=== PATIENT | female | born 1955 | race Caucasian/White ===

== ENCOUNTER 2018-01-10 16:55 | Observation (INO) ==
[2018-01-10] MEDS ORDERED: Ketorolac Inj 30 MG/ML (IVP) Vial IV.PUSH STA (17:45)
[2018-01-10] MEDS ORDERED: Sod Chloride 0.9% Inj 1,000 ML IV.SIG ONE (17:45)
[2018-01-10 18:22] LABS: Bilirubin,Urine Negative (Negative); Clarity,Urine Clear (Clear); Color,Urine Yellow (Yellw/Straw); Glucose,Urine (UA) Negative (Negative); Leukocyte Esterase,Urine Moderate (Negative); Nitrite,Urine Negative (Negative)
[2018-01-10 18:24] LABS: Baso # (Auto) 0.1 th/mm3 (0.0-0.2); Baso % (Auto) 0.7 % (0.0-2.0); Eos # (Auto) 0.4 th/mm3 (0.0-0.4); Eos % (Auto) 4.5 % (0.0-4.0); Hematocrit 48.1 % (35.0-46.0); Hemoglobin 16.4 gm/dL (11.6-15.3); Lymph # (Auto) 1.5 th/mm3 (1.0-4.8); Lymph % (Auto) 17.8 % (9.0-44.0); Mean Corpuscular HGB Conc 34.2 % (32.0-36.0); Mean Corpuscular Hemoglobin 30.9 pg (27.0-34.0); Mean Corpuscular Volume 90.5 fL (80.0-100.0); Mean Platelet Volume 10.9 fL (7.0-11.0); Mono # (Auto) 0.5 th/mm3 (0.0-0.9); Neut # (Auto) 5.9 th/mm3 (1.8-7.7); Platelet Count 184 th/mm3 (150-450); Red Blood Count 5.31 mil/mm3 (4.00-5.30); Red Cell Distribution Width 14.7 % (11.6-17.2); White Blood Count 8.4 th/mm3 (4.0-11.0)
[2018-01-10 18:34] LABS: Chloride 102 meq/L (98-107); Potassium 4.1 meq/L (3.5-5.1); Sodium 137 meq/L (136-145)
[2018-01-10 18:37] LABS: Albumin 3.9 g/dL (3.4-5.0); Anion Gap 6 meq/L (5-15); Calcium 8.8 mg/dL (8.5-10.1); Carbon Dioxide 29.5 meq/L (21.0-32.0); Glucose,Random 86 mg/dL (74-106)
[2018-01-10 18:38] LABS: Blood Urea Nitrogen 8 mg/dL (7-18)
[2018-01-10 18:40] LABS: Alanine Aminotransferase 16 U/L (10-53)
[2018-01-10 18:41] LABS: Aspartate Aminotransferase 16 U/L (15-37); Glomerular Filtration Rate 50 mL/min (>89)
[2018-01-10 18:43] LABS: Alkaline Phosphatase 100 U/L (45-117)
[2018-01-10 18:46] LABS: Bacteria,Urine Few /hpf; RBC,Urine 0-3 /hpf (0-3); WBC,Urine 21-50 /hpf (0-5)
[2018-01-10 18:47] LABS: Activated Partial Thrombo Time 28.9 sec (24.3-30.1); Prothrombin Time 10.5 sec (9.8-11.6)
[2018-01-10 18:51] LABS: Thyroid Stimulating Hormone 0.256 uIU/mL (0.358-3.740)
--- NOTE | 2018-01-10 18:59 | CT ---
EXAM DATE: 01/10/2018 6:53 PM EDT AGE/SEX: 62 years / Female INDICATIONS: Dizziness. CLINICAL DATA: This is the patient's initial encounter. Patient reports that signs and symptoms have been present for 2 days and indicates a pain score of 4/10. MEDICAL/SURGICAL HISTORY: Hypertension. Hypothyroidism. Subdural hematoma. Cholecystectomy. Tons illectomy. RADIATION DOSE: 55.37 CTDI (mGy) COMPARISON: No prior exams available for comparison. TECHNIQUE: CT of the head without contrast. Using automated exposure control and adjustment of the mA and/or kV according to patient size, radiation dose was kept as low as reasonably achievable to ob tain optimal diagnostic quality images. DICOM format image data is available electronically for revi ew and comparison. FINDINGS: Cerebrum: The ventricles are normal for age. No evidence of midline shift, mass lesion, hemorrhage or acute infarction. No extraaxial fluid collections are seen. Posterior Fossa: The cerebellum and brainstem are intact. The 4th ventricle is midline. The cerebe llopontine angle is unremarkable. Extracranial: The visualized portion of the orbits is intact. Skull: The calvaria is intact. No evidence of skull fracture. CONCLUSION: Negative noncontrast head CT. . Electronically signed by: Bhanu Altamirano MD 01/10/2018 6:57 PM EDT
--- NOTE | 2018-01-10 19:21 | ED ---
HPI General Chief complaint: Weakness Stated complaint: Dizziness/Fall xYest Time Seen by Provider: 01/10/18 17:39 History of Present Illness HPI narrative: 62-year-old female here for evaluation of spinning sensation. Patient states that symptoms started yesterday, sudden onset, no weakness in arms or legs, no sensory loss. She states that she feels as if the room is spinning around her every time she moves her head up. She has no fever or chills, no night sweats. She has history of migraine headaches in the past, she states Toradol and Phenergan usually helps her headaches, she currently has no headache or any neurological symptoms except for the spinning sensation. Related Data Home Medications Medication Instructions Recorded Confirmed memantine [Namenda] 10 mg PO BID 01/10/18 01/10/18 metoprolol succinate [Toprol XL] 50 mg PO DAILY 01/10/18 01/10/18 paroxetine HCl [Paxil] 50 mg PO DAILY 01/10/18 01/10/18 trazodone 100 mg PO HS 01/10/18 01/10/18 Previous Rx's Medication Instructions Recorded levothyroxine 50 mcg PO DAILY #30 tab 01/11/18 Allergies Allergy/AdvReac Type Severity Reaction Status Date / Time Penicillins Allergy unknown Verified 01/10/18 17:13 tetracycline Allergy unknown Verified 01/10/18 17:13 acetaminophen [From Percocet] AdvReac Irritabilit Verified 01/10/18 17:13 y/Anxiety hydromorphone [From Dilaudid] AdvReac Irritabilit Verified 01/10/18 17:13 y/Anxiety oxycodone [From Percocet] AdvReac Irritabilit Verified 01/10/18 17:13 y/Anxiety Review of Systems ROS: all other systems reviewed are negative [facility] Medical History Medical History Anxiety (Acute) History of subdural hematoma (Acute) Hypertension (Acute) Hypothyroidism (Acute) PTSD (post-traumatic stress disorder) (Acute) Tobacco abuse (Acute) Surgical History Surgical History History of cholecystectomy (Acute) History of tonsillectomy (Acute) Social History Social History Substance History: Past History Second Hand Smoke Exposure: No Smoking Status: Current every day smoker Tobacco Type: Cigarettes How Often Do You Have a Drink Containing Alcohol: Never Recent Travel in [facility] within the Last 8 Weeks: No Recent Out of Country Travel within the Last 8 Weeks: No Immunization History Tetanus Immunization: Unsure Hx Influenza Vaccine This Season: No Exam Narrative Exam Narrative: GENERAL: Alert oriented 3 no acute distress. SKIN: Focused skin assessment warm/dry. HEAD: Atraumatic. Normocephalic. EYES: Pupils equal and round. No scleral icterus. No injection or drainage. ENT: No nasal bleeding or discharge. Mucous membranes pink and moist. NECK: Trachea midline. No JVD. CARDIOVASCULAR: Regular rate and rhythm. No murmur appreciated. RESPIRATORY: No accessory muscle use. Clear to auscultation. Breath sounds equal bilaterally. GASTROINTESTINAL: Abdomen soft, non-tender, nondistended. Hepatic and splenic margins not palpable. MUSCULOSKELETAL: No obvious deformities. No clubbing. No cyanosis. No edema. NEUROLOGICAL: Horizontal nystagmus, Awake and alert. No obvious cranial nerve deficits. Motor grossly within normal limits. Normal speech. PSYCHIATRIC: Appropriate mood and affect; insight and judgment normal. Course Initial Documented Vital Signs Temperature 98.1 F 01/10/18 17:06 Pulse Rate 60 01/10/18 17:06 Respiratory Rate 18 01/10/18 17:06 Blood Pressure 200/98 H 01/10/18 17:06 Pulse Oximetry 93 L 01/10/18 17:06 Last Documented Vital Signs Temperature 99.0 F 01/11/18 12:00 Pulse Rate 79 01/11/18 12:00 Respiratory Rate 18 01/11/18 12:00 Blood Pressure 145/82 H 01/11/18 12:00 Pulse Oximetry 95 01/11/18 12:[address] [facility] Narrative Medical decision making narrative: 62-year-old female here for evaluation of dizziness and spinning sensation. Physical exam is remarkable for nystagmus, uncontrolled hypertension, intractable vertigo that is not responding to treatment, no focal deficits. Head CT is negative, I believe the patient would benefit from 23 hour observation for further evaluation. Lab Data Result diagrams: 01/11/18 05:15 01/11/18 05:15 Lab Results 01/10/18 01/10/18 01/10/18 Range/Units 18:10 18:15 18:15 CBC w Diff Auto diff final WBC 8.4 (4.0-11.0) th/mm3 RBC 5.31 H (4.00-5.30) mil/mm3 Hgb 16.4 H (11.6-15.3) gm/dL Hct 48.1 H (35.0-46.0) % MCV 90.5 (80.0-100.0) fL MCH 30.9 (27.0-34.0) pg MCHC 34.2 (32.0-36.0) % RDW 14.7 (11.6-17.2) % Plt Count 184 (150-450) th/mm3 MPV 10.9 (7.0-11.0) fL Neut % (Auto) 71.0 H (16.0-70.0) % Lymph % (Auto) 17.8 (9.0-44.0) % [place] % (Auto) 6.0 (0.0-8.0) % Eos % (Auto) 4.5 H (0.0-4.0) % Baso % (Auto) 0.7 (0.0-2.0) % Neut # (Auto) 5.9 (1.8-7.7) th/mm3 Lymph # (Auto) 1.5 (1.0-4.8) th/mm3 [place] # (Auto) 0.5 (0.0-0.9) th/mm3 Eos # (Auto) 0.4 (0.0-0.4) th/mm3 Baso # (Auto) 0.1 (0.0-0.2) th/mm3 WBC Differential . Differential Comment . PT 10.5 (9.8-11.6) sec INR 1.0 Ratio APTT 28.9 (24.3-30.1) sec Sodium (136-145) meq/L Potassium (3.5-5.1) meq/L Chloride (98-107) meq/L Carbon Dioxide (21.0-32.0) meq/L Anion Gap (5-15) meq/L BUN (7-18) mg/dL Creatinine (0.50-1.00) mg/dL Estimated GFR (>89) mL/min Random Glucose (74-106) mg/dL Calcium (8.5-10.1) mg/dL Total Bilirubin (0.2-1.0) mg/dL AST (15-37) U/L ALT (10-53) U/L Alkaline Phosphatase (45-117) U/L Troponin I (0.02-0.05) ng/mL Total Protein (6.4-8.2) g/dL Albumin (3.4-5.0) g/dL TSH (0.358-3.740) uIU/mL Free T4 (0.76-1.46) ng/dL Urine Color Yellow (Yellw/Straw) Urine Clarity Clear (Clear) Urine pH 6.0 (5.0-8.5) Ur Specific [place] 1.020 (1.002-1.035) Urine Protein Negative (Neg-Trace) mg/dL Urine Glucose (UA) Negative (Negative) mg/dL Urine Ketones Negative (Negative) mg/dL Urine Occult Blood Negative (Negative) Urine Nitrate Negative (Negative) Urine Bilirubin Negative (Negative) Urine Urobilinogen 1.0 (Less than 2) mg/dL Ur Leukocyte Esterase Moderate H (Negative) Urine RBC 0-3 (0-3) /hpf Urine WBC 21-50 H (0-5) /hpf Ur Squamous Epith Cells 6-10 H (0-5) /hpf Urine Bacteria Few H (None) /hpf Micro UA Comment Culture indicated Urine Culture Comments Culture indicated 01/10/18 01/10/18 01/11/18 Range/Units 18:15 18:15 05:15 CBC w Diff Auto diff final WBC 7.4 (4.0-11.0) th/mm3 RBC 4.82 (4.00-5.30) mil/mm3 Hgb 14.9 (11.6-15.3) gm/dL Hct 44.1 (35.0-46.0) % MCV 91.6 (80.0-100.0) fL MCH 30.8 (27.0-34.0) pg MCHC 33.6 (32.0-36.0) % RDW 14.7 (11.6-17.2) % Plt Count 160 (150-450) th/mm3 MPV 10.8 (7.0-11.0) fL Neut % (Auto) 62.8 (16.0-70.0) % Lymph % (Auto) 21.7 (9.0-44.0) % [place] % (Auto) 9.0 H (0.0-8.0) % Eos % (Auto) 5.9 H (0.0-4.0) % Baso % (Auto) 0.6 (0.0-2.0) % Neut # (Auto) 4.7 (1.8-7.7) th/mm3 Lymph # (Auto) 1.6 (1.0-4.8) th/mm3 [place] # (Auto) 0.7 (0.0-0.9) th/mm3 Eos # (Auto) 0.4 (0.0-0.4) th/mm3 Baso # (Auto) 0.0 (0.0-0.2) th/mm3 WBC Differential . Differential Comment . PT (9.8-11.6) sec INR Ratio APTT (24.3-30.1) sec Sodium 137 (136-145) meq/L Potassium 4.1 (3.5-5.1) meq/L Chloride 102 (98-107) meq/L Carbon Dioxide 29.5 (21.0-32.0) meq/L Anion Gap 6 (5-15) meq/L BUN 8 (7-18) mg/dL Creatinine 1.10 H (0.50-1.00) mg/dL Estimated GFR 50 L (>89) mL/min Random Glucose 86 (74-106) mg/dL Calcium 8.8 (8.5-10.1) mg/dL Total Bilirubin 0.8 (0.2-1.0) mg/dL AST 16 (15-37) U/L ALT 16 (10-53) U/L Alkaline Phosphatase 100 (45-117) U/L Troponin I Less than 0.02 L (0.02-0.05) ng/mL Total Protein 8.0 (6.4-8.2) g/dL Albumin 3.9 (3.4-5.0) g/dL TSH 0.256 L (0.358-3.740) uIU/mL Free T4 1.45 (0.76-1.46) ng/dL Urine Color (Yellw/Straw) Urine Clarity (Clear) Urine pH (5.0-8.5) Ur Specific [place] (1.002-1.035) Urine Protein (Neg-Trace) mg/dL Urine Glucose (UA) (Negative) mg/dL Urine Ketones (Negative) mg/dL Urine Occult Blood (Negative) Urine Nitrate (Negative) Urine Bilirubin (Negative) Urine Urobilinogen (Less than 2) mg/dL Ur Leukocyte Esterase (Negative) Urine RBC (0-3) /hpf Urine WBC (0-5) /hpf Ur Squamous Epith Cells (0-5) /hpf Urine Bacteria (None) /hpf Micro UA Comment Urine Culture Comments 01/11/18 Range/Units 05:15 CBC w Diff WBC (4.0-11.0) th/mm3 RBC (4.00-5.30) mil/mm3 Hgb (11.6-15.3) gm/dL Hct (35.0-46.0) % MCV (80.0-100.0) fL MCH (27.0-34.0) pg MCHC (32.0-36.0) % RDW (11.6-17.2) % Plt Count (150-450) th/mm3 MPV (7.0-11.0) fL Neut % (Auto) (16.0-70.0) % Lymph % (Auto) (9.0-44.0) % [place] % (Auto) (0.0-8.0) % Eos % (Auto) (0.0-4.0) % Baso % (Auto) (0.0-2.0) % Neut # (Auto) (1.8-7.7) th/mm3 Lymph # (Auto) (1.0-4.8) th/mm3 [place] # (Auto) (0.0-0.9) th/mm3 Eos # (Auto) (0.0-0.4) th/mm3 Baso # (Auto) (0.0-0.2) th/mm3 WBC Differential Differential Comment PT (9.8-11.6) sec INR Ratio APTT (24.3-30.1) sec Sodium 140 (136-145) meq/L Potassium 3.7 (3.5-5.1) meq/L Chloride 104 (98-107) meq/L Carbon Dioxide 28.9 (21.0-32.0) meq/L Anion Gap 7 (5-15) meq/L BUN 12 (7-18) mg/dL Creatinine 1.00 (0.50-1.00) mg/dL Estimated GFR 56 L (>89) mL/min Random Glucose 92 (74-106) mg/dL Calcium 8.6 (8.5-10.1) mg/dL Total Bilirubin (0.2-1.0) mg/dL AST (15-37) U/L ALT (10-53) U/L Alkaline Phosphatase (45-117) U/L Troponin I (0.02-0.05) ng/mL Total Protein (6.4-8.2) g/dL Albumin (3.4-5.0) g/dL TSH (0.358-3.740) uIU/mL Free T4 (0.76-1.46) ng/dL Urine Color (Yellw/Straw) Urine Clarity (Clear) Urine pH (5.0-8.5) Ur Specific [place] (1.002-1.035) Urine Protein (Neg-Trace) mg/dL Urine Glucose (UA) (Negative) mg/dL Urine Ketones (Negative) mg/dL Urine Occult Blood (Negative) Urine Nitrate (Negative) Urine Bilirubin (Negative) Urine Urobilinogen (Less than 2) mg/dL Ur Leukocyte Esterase (Negative) Urine RBC (0-3) /hpf Urine WBC (0-5) /hpf Ur Squamous Epith Cells (0-5) /hpf Urine Bacteria (None) /hpf Micro UA Comment Urine Culture Comments Imaging Data Radiologist's impression: Head CT 01/10/18 17:45 CONCLUSION: Negative noncontrast head CT. . Discharge Plan Discharge Disposition Patient Disposition: 30 Still Patient Discharge Condition Condition: Stable Discharge Order Discharge Orders: Discharge Order (Routine); Ordered 01/11/18 Ordered By: Christopher Pritchett Physicians Team ED Provider: Sai Wei Primary Care Provider: Prema Bills Attending Provider: Christopher Pritchett Status ED Status: Left Department Discharge Information Discharge Date/Time: 01/10/18 21:54
[2018-01-10] MEDS ORDERED: Labetalol HCl Inj 100 MG/20 ML Vial IV.PUSH STA (19:39)
[2018-01-10] MEDS ORDERED: Bisacodyl 10 MG Supp RECTAL PRN (20:23)
[2018-01-10] MEDS ORDERED: hydrALAZINE HCl Inj 20 MG/ML Vial IV.PUSH STA (20:23)
[2018-01-10] MEDS ORDERED: Sod Chloride 0.9% Inj 1,000 ML IV.CONT SCH (20:30)
[2018-01-10] MEDS ORDERED: traZODone 100 MG Tablet PO SCH (21:00)
[2018-01-11] MEDS ORDERED: Levothyroxine 75 MCG Tablet PO SCH (06:00)
[2018-01-11 06:14] LABS: Baso % (Auto) 0.6 % (0.0-2.0); Eos # (Auto) 0.4 th/mm3 (0.0-0.4); Eos % (Auto) 5.9 % (0.0-4.0); Hematocrit 44.1 % (35.0-46.0); Hemoglobin 14.9 gm/dL (11.6-15.3); Lymph # (Auto) 1.6 th/mm3 (1.0-4.8); Lymph % (Auto) 21.7 % (9.0-44.0); Mean Corpuscular HGB Conc 33.6 % (32.0-36.0); Mean Corpuscular Hemoglobin 30.8 pg (27.0-34.0); Mean Corpuscular Volume 91.6 fL (80.0-100.0); Mean Platelet Volume 10.8 fL (7.0-11.0); Mono # (Auto) 0.7 th/mm3 (0.0-0.9); Neut # (Auto) 4.7 th/mm3 (1.8-7.7); Neut % (Auto) 62.8 % (16.0-70.0); Platelet Count 160 th/mm3 (150-450); Red Blood Count 4.82 mil/mm3 (4.00-5.30); Red Cell Distribution Width 14.7 % (11.6-17.2); White Blood Count 7.4 th/mm3 (4.0-11.0)
[2018-01-11 06:22] LABS: Potassium 3.7 meq/L (3.5-5.1)
[2018-01-11 06:27] LABS: Calcium 8.6 mg/dL (8.5-10.1)
[2018-01-11 06:28] LABS: Carbon Dioxide 28.9 meq/L (21.0-32.0)
[2018-01-11] MEDS ORDERED: PARoxetine 25 MG ER Tablet PO SCH (09:00)
[2018-01-11 09:09] VITALS: RESP 18
--- NOTE | 2018-01-11 10:01 | P.HPIM ---
History of Present Illness Service: [facility] Primary Care Physician: Prema Bills DO Chief Complaint: Dizziness History of Present Illness: 62-year-old female with a medical history significant for hypertension, hypothyroidism, previous episodes of vertigo presented to the emergency room with complaint of dizziness, room spinning. The patient reports she has had vertigo in the remote past but no recent episodes. Patient states her symptoms started suddenly yesterday. She denies any weakness or numbness. No headaches. On arrival to the emergency room her blood pressure was significantly elevated at 234/123. She denies any chest pain or shortness of breath. This morning, the patient reports she is feeling much better and is requesting to go home. It is worth noting the patient takes Xanax and high dose of trazodone. - Diagnosis (1) Vertigo (2) Accelerated hypertension (3) Hypothyroid (4) Tobacco abuse Review of Systems All other systems reviewed negative except as stated in HPI [facility] - History History Provided By: Patient - Medical History Medical History: Medical History (Last Updated 01/11/18 @ 10:19 by Christopher Pritchett MD) Anxiety History of subdural hematoma Hypertension Hypothyroidism PTSD (post-traumatic stress disorder) Tobacco abuse - Surgical History Surgical History: Surgical History (Last Reviewed 01/11/18 @ 08:31 by Gene Jarquin) History of cholecystectomy History of tonsillectomy - Tobacco History Second Hand Smoke Exposure: No Tobacco Use In Past 30 Days: Yes Smoking Status: Current every day smoker Tobacco Type: Cigarettes - Alcohol History How Often Do You Have a Drink Containing Alcohol: Never - Substance Use History Substance History: Past History - Travel History Recent Travel in the [place] Within the Last 8 Weeks: No Recent Travel Out of the Country Within the Last 8 Weeks: No - Immunization History Tetanus Immunization: Unsure Hx Influenza Vaccine This Season: No Medications and Allergies Active Medications: Active Medications Al Hydroxide/Mg Hydroxide (Milk Of Magnleonard Liq) 30 ml PO Q12H PRN PRN Reason: Mild Constipation Alprazolam (Xanax) 2 mg PO HS ROBINA Bisacodyl (Dulcolax Supp) 10 mg RECTAL DAILY PRN PRN Reason: SEVERE CONSITIPATION Enalaprilat (Vasotec Inj) 2.5 mg IV.PUSH Q6H PRN PRN Reason: SBP > 160 and/or DBP > 100 Sodium Chloride (Ns Inj) 1,000 mls @ 100 mls/hr IV.CONT .Q10H COUNT INCLUDES THE [facility] Last Admin: 01/10/18 23:25 Dose: Not Given Lactulose (Lactulose Liq) 30 ml PO DAILY PRN PRN Reason: SEVERE CONSITIPATION Levothyroxine Sodium (Synthroid) 75 mcg PO DAILY@0600 COUNT INCLUDES THE [facility] Last Admin: 01/11/18 05:45 Dose: 75 mcg Memantine (Namenda) 10 mg PO DAILY COUNT INCLUDES THE [facility] Last Admin: 01/11/18 08:46 Dose: 10 mg Metoprolol Succinate (Toprol Xl) 50 mg PO DAILY COUNT INCLUDES THE [facility] Last Admin: 01/11/18 08:47 Dose: 50 mg Ondansetron HCl (Zofran Inj) 4 mg IV.PUSH Q6H PRN PRN Reason: NAUSEA OR VOMITING Paroxetine HCl (Paxil Cr) 50 mg PO DAILY COUNT INCLUDES THE [facility] Last Admin: 01/11/18 08:47 Dose: 50 mg Sennosides (Senokot) 17.2 mg PO Q12H PRN PRN Reason: Moderate Constipation Trazodone HCl (Desyrel) 100 mg PO [facility] Last Admin: 01/11/18 00:53 Dose: 100 mg Allergies Allergy/AdvReac Type Severity Reaction Status Date / Time Penicillins Allergy unknown Verified 01/10/18 17:13 tetracycline Allergy unknown Verified 01/10/18 17:13 acetaminophen [From Percocet] AdvReac Irritabilit Verified 01/10/18 17:13 y/Anxiety hydromorphone [From Dilaudid] AdvReac Irritabilit Verified 01/10/18 17:13 y/Anxiety oxycodone [From Percocet] AdvReac Irritabilit Verified 01/10/18 17:13 y/Anxiety Home Medications Medication Instructions Recorded Confirmed Type alprazolam 2 mg PO 01/10/18 01/10/18 History levothyroxine 75 mcg PO DAILY 01/10/18 01/10/18 History memantine [Namenda] 10 mg PO BID 01/10/18 01/10/18 History metoprolol succinate [Toprol XL] 50 mg PO DAILY 01/10/18 01/10/18 History paroxetine HCl [Paxil] 50 mg PO DAILY 01/10/18 01/10/18 History tizanidine 4 mg PO TID PRN 01/10/18 01/10/18 History trazodone 100 mg PO HS 01/10/18 01/10/18 History Exam Vital signs: Vital Signs 01/10/18 17:06 01/10/18 17:09 01/10/18 20:00 Temperature 98.1 F Pulse Rate 60 70 68 Respiratory Rate 18 16 18 Blood Pressure 200/98 H 193/86 H 234/123 H Pulse Oximetry 93 L 98 01/10/18 21:25 01/10/18 23:41 01/11/18 00:00 Temperature 98.1 F 96.7 F L Pulse Rate 74 74 79 Respiratory Rate 18 18 20 Blood Pressure 190/87 H 156/78 H 138/60 Pulse Oximetry 98 97 01/11/18 08:00 01/11/18 08:30 Temperature 96.7 F L Pulse Rate 70 74 Respiratory Rate 18 Blood Pressure 140/61 Pulse Oximetry 96 Intake & Output 01/10/18 01/11/18 01/11/18 18:59 06:59 18:59 Intake Total 2900 / 2900 Balance 2900 / 2900 Weight 128 kg 134.3 kg Intake: IV 1000 / 1000 NS Inj 1,000 ML @ Wide Open IV. 1000 / 1000 SIG BOLUS ONE Rx#:[id number] Oral 1900 / 1900 Other: # Voids 3 Weight On Admission 134.4 kg Narrative: CONSTITUTIONAL/GENERAL: This is an adequately nourished patient, in no apparent distress. Vital signs reviewed SKIN: No jaundice, rashes, or concerning lesions. Not diaphoretic. HEAD: Atraumatic. Normocephalic. EYES: Pupils equal and round and reactive. Extra ocular motions are intact. No scleral icterus. No injection or drainage. ENT: Hearing grossly normal. Nose without drainage. Throat without visible erythema, exudates, masses, or lesions. NECK: Trachea midline. Neck is supple, non-tender. No palpable thyroid enlargement or nodularity. CARDIOVASCULAR: Normal rate and regular rhythm without murmurs, gallops, or rubs. No JVD. Peripheral pulses 2+ and symmetric. RESPIRATORY/CHEST: Symmetric, unlabored respirations. Breath sounds equal and clear to auscultation bilaterally. No wheezes, crackles, rales, or rhonchi. GASTROINTESTINAL: Abdomen soft, non-tender, non-distended. No hepato- splenomegaly, or palpable masses. No guarding. Bowel sounds present. MUSCULOSKELETAL: Extremities without clubbing, cyanosis, or edema. No joint tenderness or effusion noted. No calf tenderness. No mottling or clubbing. NEUROLOGICAL: Awake and alert. Motor and sensory grossly within normal limits. Follows commands. Move all extremities spontaneously. No focal deficits. PSYCHIATRIC: No obvious mood problems. No apparent hallucinations or other psychotic thought process. Results - Labs CBC & Chem 7: 01/11/18 05:15 01/11/18 05:15 Labs: Short CBC 01/10/18 01/11/18 Range/Units 18:15 05:15 WBC 8.4 7.4 (4.0-11.0) th/mm3 Hgb 16.4 H 14.9 (11.6-15.3) gm/dL Hct 48.1 H 44.1 (35.0-46.0) % Plt Count 184 160 (150-450) th/mm3 BMP 01/10/18 01/11/18 18:15 05:15 Sodium 137 140 Potassium 4.1 3.7 Chloride 102 104 Carbon Dioxide 29.5 28.9 BUN 8 12 Creatinine 1.10 H 1.00 Calcium 8.8 8.6 Cardiac Enzymes 01/10/18 Range/Units 18:15 Troponin I Less than 0.02 L (0.02-0.05) ng/mL Liver Function 01/10/18 Range/Units 18:15 Total Bilirubin 0.8 (0.2-1.0) mg/dL AST 16 (15-37) U/L ALT 16 (10-53) U/L Alkaline Phosphatase 100 (45-117) U/L Albumin 3.9 (3.4-5.0) g/dL Urine 01/10/18 Range/Units 18:10 Urine Color Yellow (Yellw/Straw) Urine Clarity Clear (Clear) Urine pH 6.0 (5.0-8.5) Ur Specific [place] 1.020 (1.002-1.035) Urine Protein Negative (Neg-Trace) mg/dL Urine Glucose (UA) Negative (Negative) mg/dL - Imaging Impressions Head CT 01/10/18 17:45 CONCLUSION: Negative noncontrast head CT. . Caprini VTE Risk Assessment Caprini VTE Risk Assessment: No/Low Risk (score <= 1) Caprini Risk Assessment Model: Point Value = 1 Point Value = 2 Point Value = 3 Point Value = 5 Age 41-60 Minor surgery BMI > 25 kg/m2 Swollen legs Varicose veins or History of unexplained or recurrent spontaneous Oral contraceptives or hormone replacement Sepsis (< 1 month) Serious lung disease, including pneumonia (< 1 month) Abnormal pulmonary function Acute myocardial infarction Congestive heart failure (< 1 month) History of inflammatory bowel disease Medical patient at bed rest Age 61-74 Arthroscopic surgery Major open surgery (> 45 min) Laparoscopic surgery (> 45 min) Malignancy Confined to bed (> 72 hours) Immobilizing plaster cast Central venous access Age >= 75 History of VTE Family history of VTE Factor V Leiden Prothrombin [id number] Lupus anticoagulant Anticardiolipin antibodies Elevated serum homocysteine Heparin-induced thrombocytopenia Other congenital or acquired thrombophilia Stroke (< 1 month) Elective arthroplasty Hip, pelvis, or leg fracture Acute spinal cord injury (< 1 month) Prophylaxis Regimen: Total Risk Factor Score Risk Level Prophylaxis Regimen 0-1 Low Early ambulation 2 Moderate Order ONE of the following: *Sequential Compression Device (SCD) *Heparin 5000 units SQ BID 3-4 Higher Order ONE of the following medications: *Heparin 5000 units SQ TID *Enoxaparin/Lovenox 40 mg SQ daily (WT < 150 kg, CrCl > 30 mL/min) *Enoxaparin/Lovenox 30 mg SQ daily (WT < 150 kg, CrCl > 10-29 mL/min) *Enoxaparin/Lovenox 30 mg SQ BID (WT < 150 kg, CrCl > 30 mL/min) AND/OR *Sequential Compression Device (SCD) 5 or more Highest Order ONE of the following medications: *Heparin 5000 units SQ TID (Preferred with Epidurals) *Enoxaparin/Lovenox 40 mg SQ daily (WT < 150 kg, CrCl > 30 mL/min) *Enoxaparin/Lovenox 30 mg SQ daily (WT < 150 kg, CrCl > 10-29 mL/min) *Enoxaparin/Lovenox 30 mg SQ BID (WT < 150 kg, CrCl > 30 mL/min) AND *Sequential Compression Device (SCD) Assessment and Plan - Assessment (1) Vertigo Code(s): R42 - Dizziness and giddiness Status: Acute (2) Accelerated hypertension Code(s): I10 - Essential (primary) hypertension Status: Acute (3) Hypothyroid Code(s): E03.9 - Hypothyroidism, unspecified Status: Acute (4) Tobacco abuse Code(s): Z72.0 - Tobacco use Status: Acute - Plan 62-year-old female with: Vertigo: Patient has a known history. Accelerated hypertension, benzodiazepine may be contributing. -Head CT unremarkable -Symptoms are resolving. Obtain orthostatic bp -Counseled the patient on benzodiazepine use. Advised discontinuing Xanax. Consider decreasing the dose of trazodone at night. Advised patient to discuss with her PCP. Accelerated hypertension: Suspect medication noncompliance. BP normalized since we restarted her home dose Toprol. -Discussed compliance with the patient. -Continue Toprol Hypothyroidism: TSH is elevated. Recommend decreasing the dose of levothyroxine to 50 mcg daily and outpatient follow-up with repeat labs in 6 weeks Abnormal urinalysis: Discussed with microbiology. No growth to date. She has no symptoms of UTI. Discharge Planning: Patient reexamined later. Symptoms significantly better. BILL PT. Stable to [place] home. Discharge patient to home Condition on discharge: Improved Regular Diet as tolerated Ad Patria activity Rx written: Per med rec Follow-up with primary care physician H&P: Quality - VTE Deep Vein Thrombosis/Pulmonary Embolism Present on Admission: No
[2018-01-11 12:41] VITALS: BP 145/82; PULSE 79; TEMP 99; O2SAT 95
[2018-01-11] MEDS ORDERED: ALPRAZolam 0.5 MG Tablet PO ONE (21:00)
== END 2018-01-11 18:16 | disposition home or self-care (01) ==
LOC: PHED 16:55 → PHEDA 16:55 → PH3 16:55
PROVIDERS: ADMIT Family Medicine; ATTEND Family Medicine
DX: Z90.49 Acquired absence of other specified parts of digestive tract; I10 Essential (primary) hypertension; H55.09 Other forms of nystagmus; R42 Dizziness and giddiness; F13.90 Sedative, hypnotic, or anxiolytic use, unspecified, uncomplicated; Z88.0 Allergy status to penicillin; F43.10 Post-traumatic stress disorder, unspecified; Z88.1 Allergy status to other antibiotic agents; E03.9 Hypothyroidism, unspecified; F17.210 Nicotine dependence, cigarettes, uncomplicated